=== PATIENT | female | born 1985 | race Caucasian/White ===

== ENCOUNTER 2021-11-02 18:28 | Outpatient (CLI) | payer SELFPAY | END 2021-11-02 18:29 | disposition home or self-care (01) | LOC: LKVREF 11-05 14:33 | PROVIDERS: PCP Family Medicine; Visit Provider Family Medicine | DX: R30.0 Dysuria (principal); N39.0 Urinary tract infection, site not specified | CPT/HCPCS: 87086; 87186 ==

== ENCOUNTER 2021-11-28 11:44 | Outpatient (CLI) | payer SELFPAY | END 2021-11-28 11:45 | disposition home or self-care (01) | PROVIDERS: PCP Family Medicine; Visit Provider Nurse Practitioner Family | DX: R35.89 Other polyuria (principal); R05.9 Cough, unspecified; N39.0 Urinary tract infection, site not specified | CPT/HCPCS: 87086; 87186 ==

== ENCOUNTER 2022-04-01 09:43 | Outpatient (CLI) | payer BC, SELFPAY | END 2022-04-01 09:44 | disposition home or self-care (01) | PROVIDERS: PCP Family Medicine; Visit Provider Nurse Practitioner Family | DX: R30.0 Dysuria (principal); N39.0 Urinary tract infection, site not specified; R53.83 Other fatigue | CPT/HCPCS: 87086; 87186 ==

== ENCOUNTER 2022-04-06 16:15 | Outpatient (CLI) | payer BC, SELFPAY | END 2022-04-06 16:16 | disposition home or self-care (01) | LOC: NFLDREF 16:15 | PROVIDERS: PCP Family Medicine; Visit Provider Registered Nurse | DX: Z01.419 Encounter for gynecological examination (general) (routine) without abnormal findings (principal); N39.0 Urinary tract infection, site not specified; Z13.6 Encounter for screening for cardiovascular disorders | CPT/HCPCS: 80061 ==

== ENCOUNTER 2022-04-13 12:54 | Outpatient (CLI) | payer BC, SELFPAY | END 2022-04-13 12:55 | disposition home or self-care (01) | LOC: NFLDREF 04-15 14:22 | PROVIDERS: PCP Family Medicine; Referring Provider Family Medicine; Visit Provider Family Medicine | DX: R80.9 Proteinuria, unspecified (principal) | CPT/HCPCS: 87086; 87186 ==

== ENCOUNTER 2022-04-16 13:33 | Emergency (ER) | payer BC, SELFPAY ==
[2022-04-16] VITALS (15 sets, daily range): BP systolic 82–110; BP diastolic 58–77; PULSE 73–120; RESP 22; TEMP 37.2–38.8; O2SAT 92–96; BMI 26.6
[2022-04-16] MEDS: 0.9 % SODIUM CHLORIDE 1000 ml 1,000 ML IV (14:10)
--- NOTE | 2022-04-16 14:10 | ED_ITS ---
HPI - Female Genitourinary General Chief complaint: Urogenital Problems, Female Stated complaint: UTI, bladder and kidney pain Time Seen by Provider: 04/16/22 13:43 History of Present Illness HPI Narrative: This 37-year-old female comes in reporting abdominal pain and fever with dysuria symptoms. She states that she had a urinary tract infection about 6 months ago and was treated for it and recovered. Then over the past 2 or 3 months she has had recurrent infections apparently are not sufficiently treated. She started an antibiotic 2 days ago for results of a urinalysis that was done. She states that she has been taking nitrofurantoin for these past couple days but comes in today with fever and worsening symptoms. She also has left flank pain. He does have a history of kidney stones but does not feel typical symptoms related to that. She has a history of Crohn's disease and did take a steroid a couple weeks ago that helped her feel better for those for 5 days she took that medicine. She is not on any immune modulating medicines currently for her Crohn's disease. Related Data Previous Rx's Medication Instructions Recorded nitrofurantoin 100 mg PO Q12H 5 days #10 caps 04/14/22 monohydrate/macrocrystals 100 mg capsule (Macrobid) sulfamethoxazole 800 1 tab PO BID #30 tabs 04/16/22 mg-trimethoprim 160 mg tablet (Bactrim DS) Allergies Allergy/AdvReac Type Severity Reaction Status Date / Time No Known Drug Allergies Allergy Verified 04/08/22 08:38 Review of Systems Status of ROS: Reports: 10 or more systems reviewed and unremarkable except as noted in History and below Narrative: Constitutional: No weight gain or loss. She has a fever. Eyes: No discharge. No vision changes. HENT: No congestion, no sore throat, no ear pain. Cardiovascular: No chest pain, no palpitations. Respiratory: No shortness of breath, no wheezes, no cough. Gastrointestinal: No vomiting, no diarrhea. She reports nausea symptoms. Genitourinary: Increased frequency. Pain with voiding. Lower abdominal pain. Left flank pain. Musculoskeletal: Normal range of motion. Skin: No rashes, no pruritis. Neurological: No dizziness, weakness, sensory change, speech change. Endo/Heme/Allergies: No bruising or bleeding. No polydipsia. Pysch: no suicidality, no anxiety, no insomnia. All other systems reviewed and are negative. [facility] Medical History (Updated 04/16/22 @ 15:45 by Van Briseno MD) Depression Dysuria Fistula Kidney stones Surgical History H/O tubal ligation History of appendectomy History of bowel resection S/P ureteral stent placement Family History Paternal Grandmother Ovarian cancer Uterine cancer Cancer Mother FH: mental illness Thyroid disease Cancer Social History Smoking Status: Never smoker Do you use any of these nicotine containing products: None Second hand tobacco smoke exposure: No How often do you have a drink containing alcohol: never How often do you have six or more drinks on one occasion: Never AUDIT-C Alcohol total score: 0 Non-prescribed substance use: denies use Little interest or pleasure in doing things: several days Feeling down, depressed, or hopeless: not at all Exam Narrative: Exam Narrative: Constitutional: Well-developed, well-nourished, no acute distress. HEENT: Normocephalic, atraumatic. Neck: Normal range of motion. Nontender. Supple. Heart: Regular. No murmurs. Normal rate. Intact distal pulses. Lungs: Clear to auscultation. No chest discomfort. No wheezes, rhonchi, or rales. Abdomen: Normal bowel sounds. Tenderness in the lower abdomen. No rebound tenderness. Genitalia: Deferred. Back: No midline tenderness. Normal range of motion. Extremities: Normal range of motion. No injury. Skin: Intact. No rash. Warm. No erythema or pallor. Neurologic: No altered sensation. No weakness. Alert and oriented. Psychiatric: No suicidality. No anxiety or depression. No insomnia. Nursing notes and vitals signs are reviewed. Const: Vital Signs, click to edit/add: Vital Signs - 24 hr 04/16/22 13:38 04/16/22 14:10 04/16/22 14:12 Temperature 101.8 F H Pulse Rate 102 H 110 H Pulse Rate [Pulse Oximeter] 120 H Respiratory Rate 22 Blood Pressure 82/58 L Blood Pressure [Ri ght Upper Arm] 110/77 Pulse Oximetry 96 96 95 Oxygen Delivery Me thod Room Air 04/16/22 14:14 04/16/22 14:15 04/16/22 14:30 Temperature Pulse Rate 113 H 110 H 101 H Pulse Rate [Pulse Oximeter] Respiratory Rate Blood Pressure 103/77 Blood Pressure [Ri ght Upper Arm] Pulse Oximetry 94 94 94 Oxygen Delivery Me thod 04/16/22 14:55 Temperature 99.0 F Pulse Rate Pulse Rate [Pulse Oximeter] Respiratory Rate Blood Pressure Blood Pressure [Ri ght Upper Arm] Pulse Oximetry Oxygen Delivery Me thod Course Vital Signs Vital signs: Initial Vital Signs Temperature 101.8 F H 04/16/22 13:38 Temperature Source Temporal Artery Scan 04/16/22 13:38 Pulse Rate 120 H 04/16/22 13:38 Respiratory Rate 22 04/16/22 13:38 Blood Pressure 110/77 04/16/22 13:38 Blood Pressure Mean 88 04/16/22 13:38 Blood Pressure Position Sitting 04/16/22 13:38 Pulse Oximetry 96 04/16/22 13:38 Oxygen Delivery Method 04/16/22 13:38 Vital Signs Temperature 101.8 F H 04/16/22 13:38 Pulse Rate 120 H 04/16/22 13:38 Respiratory Rate 22 04/16/22 13:38 Blood Pressure 110/77 04/16/22 13:38 Pulse Oximetry 96 04/16/22 13:38 Oxygen Delivery Method 04/16/22 13:38 Temperature 99.0 F 04/16/22 14:55 Pulse Rate 101 H 04/16/22 14:30 Respiratory Rate 22 04/16/22 13:38 Blood Pressure 103/77 04/16/22 14:14 Pulse Oximetry 94 04/16/22 14:30 Oxygen Delivery Method 04/16/22 13:38 MDM - Female Genitourinary MDM Narrative Medical decision making narrative: This patient arrives with symptoms of dysuria and left flank pain. She also has a fever of 101.8? F. She is currently taking Macrobid and reports recurrent urinary tract infections over the past few months. I did review her urinalysis and culture with sensitivities from urine that was analyzed 3 or 4 days ago. Actually all 4 of the most recent urinalysis is grew E coli. The most recent 1 showed sensitivity to all antibiotics tested. This patient had an IV established where she did receive a L of normal saline and Toradol 30 mg. Lab results returned with a white count elevated at around 18,000. Her lactate is in normal range. Blood cultures are obtained with results pending. After blood cultures were obtained the patient received a g of Rocephin intravenously. She is maintaining normal vital signs and is not showing signs of sepsis. No sepsis workup is indicated. It seems that her recurrent E coli infections are not being adequately treated despite sensitivities that show this pathogen being sensitive to all antibiotics tested. In addition to the Rocephin she received today a prescription is provided for Bactrim. I advised her to take it twice a day for 10 days and then once a day for another 10 days. She is instructed to return if worsening symptoms happen or if not improving. Lab Data Labs: Lab Results 04/16/22 04/16/22 04/16/22 Range/Units 14:05 14:05 14:05 WBC 18.17 H (4.50-11.00) K/uL RBC 4.83 (4.00-5.20) m/uL Hgb 13.1 (12.0-16.0) gm/dL Hct 39.6 (33.0-51.0) % MCV 82 (80-100) fL MCH 27 (26-34) pg MCHC 33 (32-36) gm/dL RDW Coeff of Darren 13.2 (11.5-15.5) % Plt Count 295 (140-440) K/uL Neut % (Auto) 74.9 H (42.0-72.0) % Lymph % (Auto) 17.3 L (20-44) % [place] % (Auto) 6.9 (0.0-11.0) % Eos % (Auto) 0.4 (0.0-7.0) % Baso % (Auto) 0.2 (0.0-3.0) % Neut # (Auto) 13.60 H (1.7-7.0) K/uL Lymph # (Auto) 3.10 H (0.90-2.90) K/uL [place] # (Auto) 1.30 H (0.00-0.90) K/UL Eos # (Auto) 0.10 (0.00-0.50) K/uL Baso # (Auto) 0.00 (0.00-0.30) K/uL Sodium 130 L (135-149) mmol/L Potassium 2.7 L* (3.6-5.1) mmol/L Chloride 97 (96-114) mmol/L Carbon Dioxide 27 (20-32) mmol/L BUN 12 (5-24) mg/dL Creatinine 1.1 (0.5-1.5) mg/dL Estimated Creat Clear 64.28 Estimated GFR 66 ml/min Glucose 106 (60-115) mg/dL Lactate (0.5-1.9) mmol/L Calcium 8.2 L (8.4-10.6) mg/dL Urine Color Yellow (Yellow) Urine Appearance Cloudy A (Clear) Urine pH 6.0 (5.0-8.5) Ur Specific [place] 1.010 (1.000-1.030) Urine Protein Trace A (Negative) Urine Glucose (UA) Negative (Negative) Urine Ketones Negative (Negative) Urine Blood 2+ A (Negative) Urine Nitrite Negative (Negative) Urine Bilirubin Negative (Negative) Urine Urobilinogen 1.0 (0.2-1.0) Ur Leukocyte Esterase 3+ A (Negative) Urine RBC 0-2 (0-2) Urine WBC 25-50 A (0-5) Ur Squamous Epith Cells Few (None-Few) Urine Bacteria Few A (None) SARS-CoV-2 Ag (Rapid) (Negative) 04/16/22 04/16/22 Range/Units 14:05 14:30 WBC (4.50-11.00) K/uL RBC (4.00-5.20) m/uL Hgb (12.0-16.0) gm/dL Hct (33.0-51.0) % MCV (80-100) fL MCH (26-34) pg MCHC (32-36) gm/dL RDW Coeff of Darren (11.5-15.5) % Plt Count (140-440) K/uL Neut % (Auto) (42.0-72.0) % Lymph % (Auto) (20-44) % [place] % (Auto) (0.0-11.0) % Eos % (Auto) (0.0-7.0) % Baso % (Auto) (0.0-3.0) % Neut # (Auto) (1.7-7.0) K/uL Lymph # (Auto) (0.90-2.90) K/uL [place] # (Auto) (0.00-0.90) K/UL Eos # (Auto) (0.00-0.50) K/uL Baso # (Auto) (0.00-0.30) K/uL Sodium (135-149) mmol/L Potassium (3.6-5.1) mmol/L Chloride (96-114) mmol/L Carbon Dioxide (20-32) mmol/L BUN (5-24) mg/dL Creatinine (0.5-1.5) mg/dL Estimated Creat Clear Estimated GFR ml/min Glucose (60-115) mg/dL Lactate 1.4 (0.5-1.9) mmol/L Calcium (8.4-10.6) mg/dL Urine Color (Yellow) Urine Appearance (Clear) Urine pH (5.0-8.5) Ur Specific [place] (1.000-1.030) Urine Protein (Negative) Urine Glucose (UA) (Negative) Urine Ketones (Negative) Urine Blood (Negative) Urine Nitrite (Negative) Urine Bilirubin (Negative) Urine Urobilinogen (0.2-1.0) Ur Leukocyte Esterase (Negative) Urine RBC (0-2) Urine WBC (0-5) Ur Squamous Epith Cells (None-Few) Urine Bacteria (None) SARS-CoV-2 Ag (Rapid) Negative (Negative) Discharge Plan Discharge Clinical Impression: Urinary tract infection Patient Disposition: Home, Self-Care Condition: Stable Additional Instructions: Take medication as prescribed. Follow up with MD or return if symptoms are persistent or worsening. Prescriptions: New sulfamethoxazole-trimethoprim [Bactrim DS] 800-160 mg tablet 1 tab PO BID Qty: 30 0RF No Action nitrofurantoin monohyd/m-cryst [Macrobid] 100 mg capsule 100 mg PO Q12H 5 Days Qty: 10 0RF Rx Instructions: must administer with a meal/food Follow Up/Referrals: Jair Baxter MD [Primary Care Provider] - Stand Alone Forms: [employer] Info Instructions
[2022-04-16 14:18] LABS: Lactate* 1.4 mmol/L (0.5-1.9)
[2022-04-16 14:20] LABS: Basophils Percent Auto 0.2 % (0.0-3.0); Eosinophils Percent Auto 0.4 % (0.0-7.0); Hematocrit 39.6 % (33.0-51.0); Hemoglobin* 13.1 gm/dL (12.0-16.0); Immature Granulocytes Pct Auto 0.3 %; Lymphocytes Percent Auto 17.3 % (20-44); Mean Corpuscular HGB Conc 33 gm/dL (32-36); Mean Corpuscular Hemoglobin 27 pg (26-34); Mean Corpuscular Volume 82 fL (80-100); Monocytes Percent Auto 6.9 % (0.0-11.0); Neutrophils Percent Auto 74.9 % (42.0-72.0); Platelet Count* 295 K/uL (140-440); RDW Coefficient of Variation % 13.2 % (11.5-15.5); Red Blood Count 4.83 m/uL (4.00-5.20); White Blood Count* 18.17 K/uL (4.50-11.00)
[2022-04-16 14:21] LABS: Slide Review Reflex No
[2022-04-16] MEDS: KETOROLAC 30 MG/ML inj IVP (14:21)
[2022-04-16] MEDS: ONDANSETRON 2 MG/ML inj 4 MG IVP (14:21)
[2022-04-16 14:31] LABS: Appearance Urine Cloudy (Clear); Bilirubin Urine Negative (Negative); Blood Urine 2+ (Negative); Color Urine Yellow (Yellow); Glucose Urine Negative (Negative); Ketones Urine Negative (Negative); Leukocyte Esterase Urine 3+ (Negative); Nitrite Urine Negative (Negative); Protein Urine Trace (Negative)
[2022-04-16 14:42] LABS: Chloride* 97 mmol/L (96-114); Sodium* 130 mmol/L (135-149)
[2022-04-16 14:44] LABS: Creatinine* 1.1 mg/dL (0.5-1.5); Est. Creatinine Clearance* 64.28; Estimated Glomerular Filt Rate 66 ml/min
[2022-04-16 14:45] LABS: Blood Urea Nitrogen* 12 mg/dL (5-24); Calcium* 8.2 mg/dL (8.4-10.6); Carbon Dioxide* 27 mmol/L (20-32); Glucose* 106 mg/dL (60-115)
[2022-04-16 14:46] LABS: Bacteria Urine Few; RBC Urine 0-2 (0-2); Squamous Epithelial Cell Urine Few (None-Few); WBC Urine 25-50 (0-5)
[2022-04-16] MEDS: cefTRIAXone 1 GM in 0.9 % SODIUM CHLORIDE Mini-bag 100 ML IVPB (14:46)
[2022-04-16 14:51] LABS: Potassium* 2.7 mmol/L (3.6-5.1)
[2022-04-16 15:02] LABS: SARS Antigen* Negative (Negative)
== END 2022-04-16 16:22 | disposition home or self-care (01) ==
PROVIDERS: Emergency Provider Emergency Medicine Emergency Medical Services; PCP Family Medicine
DX: N39.0 Urinary tract infection, site not specified (principal)
CPT/HCPCS: 36415; 80048; 81001; 83605; 85025; 87040; 87086; 87426; 94761; 96365; 96375; 99283; 99284; J0696; J1885; J2405; J7030

== ENCOUNTER 2022-08-12 09:23 | Outpatient (CLI) | payer BC, SELFPAY | END 2022-08-12 09:24 | disposition home or self-care (01) | PROVIDERS: PCP Family Medicine; Visit Provider Family Medicine | DX: E87.6 Hypokalemia (principal); K50.90 Crohn's disease, unspecified, without complications; R63.5 Abnormal weight gain; R53.83 Other fatigue; R80.9 Proteinuria, unspecified; R30.0 Dysuria | CPT/HCPCS: 80061; 80076 ==

== ENCOUNTER 2022-09-13 07:02 | Outpatient (CLI) | payer BC, SELFPAY | END 2022-09-13 07:03 | disposition home or self-care (01) | LOC: RAD 07:03 | PROVIDERS: PCP Family Medicine; Visit Provider Family Medicine | DX: M51.26 Other intervertebral disc displacement, lumbar region (principal); M54.16 Radiculopathy, lumbar region | CPT/HCPCS: 62323; J0702; Q9966 ==

== ENCOUNTER 2022-10-28 09:28 | Outpatient (CLI) | payer BC, SELFPAY | END 2022-10-28 09:29 | disposition home or self-care (01) | LOC: INJ CL 09:29 | PROVIDERS: PCP Family Medicine; Visit Provider Family Medicine | DX: M54.16 Radiculopathy, lumbar region (principal); M51.26 Other intervertebral disc displacement, lumbar region | CPT/HCPCS: 64483; J1100; Q9966 ==

== ENCOUNTER 2022-11-10 09:46 | Outpatient (CLI) | payer BC, SELFPAY | END 2022-11-10 09:47 | disposition home or self-care (01) | LOC: NFLDREF 11-14 10:14 | PROVIDERS: PCP Family Medicine; Referring Provider Family Medicine; Visit Provider Family Medicine | DX: E78.5 Hyperlipidemia, unspecified (principal); E87.6 Hypokalemia; R73.09 Other abnormal glucose; R74.8 Abnormal levels of other serum enzymes; Z13.29 Encounter for screening for other suspected endocrine disorder | CPT/HCPCS: 80053; 80061; 82306; 84443 ==

== ENCOUNTER 2022-11-21 10:22 | Outpatient (CLI) | payer BC, SELFPAY ==
--- NOTE | 2022-11-21 10:45 | CRLHL7_ITS ---
For Patients: As a result of the Century Cures Act, medical imaging exams and procedure reports are released immediately into your electronic medical record. You may view this report before your referring provider. If you have questions, please contact your health care provider. INDICATION: Thyroid nodule COMPARISON: none TECHNIQUE: Osei scale and color Doppler images were acquired of the thyroid gland. FINDINGS: The thyroid gland demonstrates normal uniform echogenicity and has a smooth outer contour. The right lobe measures 4.9 x 1.0 x 2.1 cm and the left lobe measures 5.0 x 1.6 x 1.8 cm in size. The isthmus measures 2 millimeters. There are no suspicious masses or nodules. Colloid cyst is present within the inferior pole of the right thyroid lobe measuring 4 x 2 x 3 millimeters. The color Doppler images demonstrate normal vascularity. There is no evidence of cervical lymphadenopathy or parathyroid mass. IMPRESSION: No dominant or suspicious thyroid nodule. Incidental 4 millimeter colloid cyst right thyroid lobe. Dictated by Helio Jimenez MD @ 11/22/2022 6:12:41 AM (Electronically Signed)
== END 2022-11-21 10:23 | disposition home or self-care (01) ==
LOC: US 10:23
PROVIDERS: PCP Family Medicine; Visit Provider Family Medicine
DX: E04.1 Nontoxic single thyroid nodule (principal)
CPT/HCPCS: 76536

== ENCOUNTER 2022-12-06 15:15 | Outpatient (RCR) | payer BC, SELFPAY | END 2023-04-05 23:59 | disposition home or self-care (01) | PROVIDERS: PCP Family Medicine; Visit Provider Physician Assistant | DX: M54.41 Lumbago with sciatica, right side (principal); Z51.89 Encounter for other specified aftercare | CPT/HCPCS: 97110; 97140; 97161; 97530 ==

== ENCOUNTER 2022-12-15 09:14 | Outpatient (CLI) | payer BC, SELFPAY | END 2022-12-15 09:15 | disposition home or self-care (01) | LOC: NFLDREF 12-16 12:47 | PROVIDERS: PCP Family Medicine; Referring Provider Family Medicine; Visit Provider Family Medicine | DX: N39.0 Urinary tract infection, site not specified (principal); M54.50 Low back pain, unspecified; R53.83 Other fatigue; E04.1 Nontoxic single thyroid nodule; Z01.818 Encounter for other preprocedural examination | CPT/HCPCS: 87086 ==

== ENCOUNTER 2023-06-28 15:50 | Outpatient (CLI) | payer BC, SELFPAY | END 2023-06-28 15:51 | disposition home or self-care (01) | LOC: NFLDREF 07-18 10:34 | PROVIDERS: PCP Family Medicine; Referring Provider Family Medicine; Visit Provider Nurse Practitioner Family | DX: R30.0 Dysuria (principal) | CPT/HCPCS: 87086 ==

== ENCOUNTER 2023-08-02 13:11 | Outpatient (CLI) | payer BC, SELFPAY | END 2023-08-02 13:12 | disposition home or self-care (01) | LOC: LKVREF 13:12 | PROVIDERS: PCP Family Medicine; Visit Provider Family Medicine | DX: Z01.818 Encounter for other preprocedural examination (principal) | CPT/HCPCS: 80048 ==

== ENCOUNTER 2024-01-23 10:34 | Outpatient (CLI) | payer BC, SELFPAY | END 2024-01-23 10:35 | disposition home or self-care (01) | PROVIDERS: PCP Family Medicine; Visit Provider Otolaryngology | DX: E04.1 Nontoxic single thyroid nodule (principal); E55.9 Vitamin D deficiency, unspecified; H91.90 Unspecified hearing loss, unspecified ear | CPT/HCPCS: 84443; 86038; 86039; 86431; 86618 ==

== ENCOUNTER 2024-02-01 09:06 | Outpatient (CLI) | payer BC, SELFPAY ==
--- NOTE | 2024-02-01 09:15 | CRLHL7_ITS ---
For Patients: As a result of the Century Cures Act, medical imaging exams and procedure reports are released immediately into your electronic medical record. You may view this report before your referring provider. If you have questions, please contact your health care provider. INDICATION: Hearing loss. COMPARISON: None. TECHNIQUE: Multiplanar T1, T2, FLAIR and diffusion-weighted imaging. Post gadolinium T1 weighted sequences. FINDINGS: Normal brain parenchymal morphology and signal intensity. No intracranial hemorrhage. No abnormal ventricular dilatation. Intracranial vascular flow voids preserved. No mass effect. No midline shift. No restricted diffusion to suggest acute ischemia. No abnormal enhancement or enhancing lesions within the brain parenchyma. Dedicated sequence of the skullbase and IAC`s demonstrates normal course of cranial nerves 7 and 8 from the root entry zone to the fundus of the IAC`s. Normal fluid signal within the cochlea and vestibule. Normal root entry zone of the bilateral trigeminal nerves. No abnormal mass or enhancement within cerebellopontine angles or IAC`s. Bilateral orbits are unremarkable. Normal appearing sella. Visualized paranasal sinuses and mastoid air cells are unremarkable. IMPRESSION: 1. No acute intracranial abnormality. 2. Normal brain parenchymal morphology and signal intensity. 3. No abnormal enhancement or enhancing lesions. 4. Dedicated sequences of the skull base and IAC`s demonstrates normal course of the cranial nerves. No abnormal mass or enhancement Dictated by Sudhakar Crowley MD @ 02/01/2024 11:42:07 AM (Electronically Signed)
== END 2024-02-01 09:07 | disposition home or self-care (01) ==
LOC: MRI 09:07
PROVIDERS: PCP Family Medicine; Visit Provider Otolaryngology
DX: H91.90 Unspecified hearing loss, unspecified ear (principal)
CPT/HCPCS: 70553; A9575